=== PATIENT | male | born 1990 | race Caucasian/White ===

== ENCOUNTER → 2020-09-09 | Outpatient (CLI) | payer OTHER ==
--- NOTE | 2020-09-11 11:54 | SLEEPCENT ---
DATE: 09/09/2020 NOCTURNAL POLYSMONOGRAPHY ORDERED BY: JOSH Kilpatrick Nocturnal polysomnography was performed for evaluation of sleep physiology in this patient with a history of excessive somnolence and nonrestorative sleep. Seven hours and 57 minutes of data were reviewed. There were 404 minutes of sleep identified. Sleep latency was normal at 26.5 minutes. REM latency was mildly increased at 134 minutes. Sleep architecture showed fragmentation. There were three REM cycles. Overall sleep efficiency was 85.5%. The electrocardiogram showed a sinus rhythm with an average heart rate of 75 beats per minute. Rate ranged 50-100. EEG showed alpha intrusion in background. No focal events were identified and there were normal waveforms for wake and sleep. There were 161 respiratory events identified of 10 seconds in duration or greater for a respiratory events index of 23.9. The events were primarily obstructive, not exclusive to sleep stage, somewhat more frequent in the supine posture but exclusive to that position. Arousals from respiratory events occurred 7.9 times per hour, and oxygen desaturations were seen into the low 80s. There was some activity noted in the limb leads as well. Only one train of 30 events. Limb movement arousal index was 6.2. IMPRESSIONS: 1. Obstructive sleep apnea syndrome (G47.33). 2. Apnea-hypopnea index 23.9. RECOMMENDATION: The patient should be encouraged to return to [facility] for [facility]. In the interim, alcohol and sedative avoidance should be practiced and caution exercised during the operation of motor vehicles. cc: DO SY Harrison
== END ==
LOC: M SLEEP 20:00
PROVIDERS: ATTEND Nurse Practitioner Family
DX: G47.33 Obstructive sleep apnea (adult) (pediatric) (principal); R06.83 Snoring